=== PATIENT | female | born 1995 | race Caucasian/White ===

== ENCOUNTER 2017-03-18 12:17 | Inpatient (IN) | payer MEDICAID ==
[~2017-03-18] VITALS: Ht 165.1 cm; Wt 79.5 kg
[2017-03-20] MEDS ORDERED: OXYTOCIN 30U/ 0.9% NaCL 500ML 500 ML IV ONE (21:39)
[2017-03-20] MEDS: D5%-LACTATED RINGERS 1,000 ML IV SCH (21:39)
[2017-03-20] MEDS ORDERED: NEWBORN KIT ONE (21:46)
[2017-03-20] MEDS ORDERED: MISOPROSTOL 25 MCG TABLET VG PRN (22:00)
[2017-03-20] MEDS ORDERED: ONDANSETRON 2MG/ML, 2ML IVPush PRN (22:00)
[2017-03-20] MEDS ORDERED: FENTANYL PF 100 MCG/2ML IV PRN (22:00)
[2017-03-20] MEDS ORDERED: TERBUTALINE 1 MG/ML, 1ML IVPush PRN ×2 (22:00)
[2017-03-20] MEDS ORDERED: FENTANYL PF 100 MCG/2ML IVPush PRN (22:00)
[2017-03-20] MEDS ORDERED: CALCIUM CARBONATE 500 MG TAB.CHEW PO PRN (22:00)
[2017-03-20] MEDS ORDERED: TERBUTALINE 1 MG/ML, 1ML SQ PRN (22:00)
[2017-03-20] MEDS ORDERED: MISOPROSTOL 25 MCG TABLET ONE (22:09)
[2017-03-20 22:11] LABS: HEMATOCRIT 28.1 % (34.6-47.8); HEMOGLOBIN 9.4 g/dL (11.7-16.4); WHITE BLOOD COUNT 7.9 x10^3/uL (3.4-10)
[2017-03-20 22:16] VITALS: BP 132/63
[2017-03-20] MEDS ORDERED: OXYTOCIN 30U/ 0.9% NaCL 500ML 500 ML ONE (23:29)
[2017-03-21] MEDS ORDERED: OXYTOCIN 30U/ 0.9% NaCL 500ML 500 ML IV PRN (05:04)
[2017-03-21] MEDS: LACTATED RINGERS 1,000 ML IV SCH ×3 (05:12→13:39)
[2017-03-21] MEDS: D5%-LACTATED RINGERS 1,000 ML IV SCH ×2 (05:39→13:39)
[2017-03-21] MEDS ORDERED: MISOPROSTOL 200 MCG TABLET ONE (10:57)
[2017-03-21] MEDS ORDERED: LIDOCAINE 1%, 20ML ONE (10:57)
[2017-03-21] MEDS ORDERED: BUPIVACAINE 0.25% ONE (12:30)
[2017-03-21] MEDS ORDERED: FENTANYL/BUPIV./NS/PF 250 ML EPIDCONT ONE (12:30)
[2017-03-21] MEDS ORDERED: FENTANYL PF 100 MCG/2ML ONE (12:30)
[2017-03-21] MEDS ORDERED: LACTATED RINGERS 1,000 ML IV SCH (13:08)
[2017-03-21] MEDS ORDERED: FENTANYL/BUPIV./NS/PF 250 ML EPIDCONT SCH (13:08)
[2017-03-21] MEDS ORDERED: LACTATED RINGERS 1,000 ML IVBOLUS PRN (13:30)
[2017-03-21] MEDS ORDERED: EPHEDRINE 50 MG/ML, 1ML IVPush PRN (13:30)
[2017-03-21] MEDS ORDERED: ONDANSETRON 2MG/ML, 2ML IVPush PRN (13:30)
[2017-03-21] MEDS: OXYTOCIN 30U/ 0.9% NaCL 500ML 500 ML IV SCH (18:04)
[2017-03-21] MEDS ORDERED: ONDANSETRON 2MG/ML, 2ML IV PRN (18:30)
[2017-03-21] MEDS ORDERED: RHOGAM FROM BLOOD BANK 1 NOTE EA IM/IV ONE (18:30)
[2017-03-21] MEDS ORDERED: DOCUSATE 100 MG CAPSULE PO PRN (18:30)
[2017-03-21] MEDS ORDERED: MEASLES,MUMPS&RUBELLA VACC/PF 0.5 ML SQ-VACC PRN (18:30)
[2017-03-21] MEDS ORDERED: CALCIUM CARBONATE 500 MG TAB.CHEW PO PRN (18:30)
[2017-03-21] MEDS ORDERED: DIPH,PERTUSS(ACELL),TET VAC/PF NC IM-VACC PRN (18:30)
[2017-03-21] MEDS ORDERED: IBUPROFEN 600 MG TABLET PO PRN (18:30)
[2017-03-21] MEDS ORDERED: OXYcodone IR 5MG TABLET PO PRN (18:30)
[2017-03-21] MEDS ORDERED: MISOPROSTOL 200 MCG TABLET PR PRN (18:30)
[2017-03-21] MEDS ORDERED: OXYcodone/APAP 5/325MG TABLET PO PRN (18:30)
[2017-03-21] MEDS ORDERED: MAGNESIUM HYDROXIDE 8%, 30ML UDC PO PRN (18:30)
[2017-03-21] MEDS ORDERED: OXYTOCIN 30U/ 0.9% NaCL 500ML 500 ML ONE (18:33)
[2017-03-21 20:00] VITALS: BP 116/64
[2017-03-22 00:32] VITALS: BP 126/58
[2017-03-22 03:30] VITALS: BP 116/56
[2017-03-22] MEDS: OXYTOCIN 30U/ 0.9% NaCL 500ML 500 ML IV SCH (04:04)
[2017-03-22] MEDS ORDERED: PRENATAL VIT/IRON/FA 1 EACH TABLET PO SCH (09:00)
[2017-03-22 09:08] VITALS: BP 122/71
[2017-03-22] MEDS ORDERED: IBUP-1223 PO (14:55)
[2017-03-22] MEDS ORDERED: OXYC-302 PO (14:55)
== END 2017-03-22 15:47 | disposition home or self-care (01) | DRG 775 ==
LOC: EDIP 03-20 21:01 → LDIP 03-20 21:37 → 2NW 03-21 19:42
PROVIDERS: ADMIT Obstetrics & Gynecology Gynecology; ATTEND Obstetrics & Gynecology Gynecology
PROC: 10E0XZZ Delivery of Products of Conception, External Approach (ICD-10-PCS; principal; 2017-03-21)
PROC: 3E033VJ Introduction of Other Hormone into Peripheral Vein, Percutaneous Approach (ICD-10-PCS; 2017-03-21)
PROC: 3E0R3BZ Introduction of Anesthetic Agent into Spinal Canal, Percutaneous Approach (ICD-10-PCS; 2017-03-21)
PROC: 00HU33Z Insertion of Infusion Device into Spinal Canal, Percutaneous Approach (ICD-10-PCS; 2017-03-21)
DX: O77.0 Labor and delivery complicated by meconium in amniotic fluid (principal); Z37.0 Single live birth; Z3A.40 40 weeks gestation of pregnancy; Z80.3 Family history of malignant neoplasm of breast; Z82.49 Family history of ischemic heart disease and other diseases of the circulatory system; Z83.3 Family history of diabetes mellitus
CPT/HCPCS: 36415; 82803; 85025; 86850; 86900; J2590; J3010; J7120

== ENCOUNTER 2020-07-13 10:59 | Emergency (ER) | payer MEDICAID ==
[~2020-07-13] VITALS: Ht 165.1 cm; Wt 73.0 kg
[~2020-07-13 10:59] MED LIST: IBUP-1223 PO; OXYC1TAB14 PO
--- NOTE | 2020-07-13 11:34 | NUR ---
PT HAVING PAIN IN UTERUS, SHARP PAIN. STARTED YESTERDAY. 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
[2020-07-13 13:12] LABS: MICROSCOPIC INDICATED
--- NOTE | 2020-07-13 13:32 | NUR ---
REPORT FROM SRIKANTH GRACE
[2020-07-13] MEDS ORDERED: HYDROmorphone 2 MG/ML, 1ML ONE (13:40)
[2020-07-13] MEDS ORDERED: ONDANSETRON 2MG/ML, 2ML ONE (13:40)
[2020-07-13] MEDS ORDERED: HYDROmorphone 1 MG/ML, 1ML INJ IV ONE (14:00)
[2020-07-13] MEDS ORDERED: ONDANSETRON 2MG/ML, 2ML IVPush ONE (14:00)
--- NOTE | 2020-07-13 14:01 | NUR ---
assumed care of patient. report given from LESLY Christine. pt resting in room. no acute distress noted. vs stable. call light in place. will continue to monitor.
--- NOTE | 2020-07-13 14:51 | NUR ---
BEDSIDE REPORT GIVEN TO LESLY LIU
--- NOTE | 2020-07-13 14:52 | NUR ---
pt in bed wtih no signs or symptoms of acute distress noted respirations even and unlabored pt states that pain has been improved since admin of meds in unit. pt with bed rails up bilaterally and call light in hand, verbalizes understanding and agreement with plan of care, denies need at this time.
--- NOTE | 2020-07-13 15:02 | NUR ---
md at bedside for pelvic exam, pt in bed with no signs or symptoms of acute dstress noted respirations even and unlabored
[2020-07-13] MEDS ORDERED: CEFTRIAXONE 1,000 MG IM ONE (15:30)
[2020-07-13] MEDS ORDERED: AZITHROMYCIN 500 MG TABLET PO ONE (15:30)
[2020-07-13] MEDS ORDERED: AZITHROMYCIN 500 MG TABLET ONE (15:30)
[2020-07-13] MEDS ORDERED: LIDOCAINE-MPF 1%, 2ML ONE (15:31)
[2020-07-13] MEDS ORDERED: CEFTRIAXONE 1,000 MG ONE (15:31)
[2020-07-13] MEDS ORDERED: LIDOCAINE-MPF 1%, 5ML ONE (15:38)
[2020-07-13 15:48] LABS: CLUE CELLS NONE SEEN (NONE SEEN)
[2020-07-13 15:49] LABS: WET PREP WBCS FEW (FEW)
[2020-07-13 15:57] VITALS: BP 119/61
== END 2020-07-13 15:59 | disposition home or self-care (01) ==
LOC: ED 15:52
DX: A54.24 Gonococcal female pelvic inflammatory disease (principal); R10.2 Pelvic and perineal pain
CPT/HCPCS: 76830; 81001; 81025; 87086; 87210; 87491; 87591; 87808; 96372; 96374; 96375; 99285; J0696; J1170; J2405